=== PATIENT | female | born 1975 | race Caucasian/White ===

== ENCOUNTER 2024-09-11 12:02 | Emergency (ER) | payer SELFPAY ==
[2024-09-11 12:19] VITALS: BP 142/113; PULSE 78; RESP 16; TEMP 36.9; O2SAT 100
--- NOTE | 2024-09-11 12:25 | XRR_ITS ---
PROCEDURE INFORMATION: Exam: XR Right Knee Exam date and time: 09/11/2024 12:34 PM Age: 49 years old Clinical indication: Injury or trauma; Fall; Blunt trauma; Knee; Right TECHNIQUE: Imaging protocol: Radiologic exam of the right knee. Views: 3 views. COMPARISON: No relevant prior studies available. FINDINGS: Bones/joints: Normal. Soft tissues: Normal. XR/XR knee RT 3V* [id number] IMPRESSION: No acute findings.
--- NOTE | 2024-09-11 12:26 | W.ED.EXTPRO ---
HPI - Extremity Problem General: Chief complaint: Extremity Injury, Lower Stated complaint: right knee pain Time Seen by Provider: 09/11/24 12:21 Source: patient Mode of arrival: ambulatory Limitations: no limitations History of Present Illness: 49-year-old female states she had tripped and fell last night. States her right foot was planted and her knee gave out she had felt a pop and she has been having pain in the medial portion of her knee since then. States it is painful to bear weight she denies any ankle or hip pain denies hitting her head. Associated symptoms: Deny chest pain, fever(s) or rash Related Data Allergies Allergy/AdvReac Type Severity Reaction Status Date / Time No Known Allergies Allergy Verified 09/11/24 12:23 Review of Systems Const: Denies: fever(s), chills, body aches or change in appetite ENMT: Denies: throat pain or dental pain Card: Denies: chest pain Resp: Denies: dyspnea GI: Denies: abdominal pain, nausea, vomiting or diarrhea Musc: Reports: extremity pain; Denies: neck pain or back pain Skin/Breast: Denies: rash Neuro: Denies: headache(s) Physical Exam Const: COMMON NORMALS: no acute distress, patient oriented x3 and healthy appearing HENMT: COMMON NORMALS: normocephalic and atraumatic HEAD & SCALP: normocephalic and atraumatic Eye: COMMON NORMALS: conjunctivae normal CONJUNCTIVA: Yes conjunctivae normal Neck/C-Spine: COMMON NORMALS: full ROM and supple Chest: COMMONS NORMALS: normal inspection of the chest Resp: COMMON NORMALS: normal respiratory effort Cardio: COMMON NORMALS: regular rate, regular rhythm and No murmurs present (Cardio) RATE: regular rate RHYTHM: regular rhythm Extremity: NARRATIVE EXTREMITY EXAM: Tenderness noted to right medial knee no swelling no obvious deformity Neuro: COMMON NORMALS: patient oriented x3, moves all extremities and no focal motor deficits Psych: COMMON NORMALS: mental status grossly normal, Normal thought process present and cooperative THOUGHT PROCESS: Normal thought process present Skin: COMMON NORMALS: no rashes or lesions noted and no wounds GENERAL SKIN EXAM: no rashes or lesions noted Course Vital Signs: Vital signs: Vital Signs Temperature 98.4 F 09/11/24 12:19 Pulse Rate 71 09/11/24 12:45 Respiratory Rate 16 09/11/24 12:19 Blood Pressure 125/80 09/11/24 12:45 Pulse Oximetry 98 09/11/24 12:45 Oxygen Delivery Me thod Room Air 09/11/24 12:45 MDM - Extremity (Nontraumatic) Medical Decision Making Patient presents here with knee sprain possible medial ligament tear or meniscus injury no fractures are seen on the x-ray she is to be nonweightbearing I did refer her to orthopedics she is to follow-up with them return if worsening Medical Records I reviewed the patient's medical records. All radiology interpretation(s) finalized by discharge ED provider radiology interpretation(s): xr knee: no acute fx Discharge Plan Discharge Patient Disposition: Home Clinical Impression: Knee sprain Qualifiers: Encounter type: initial encounter Laterality: right Condition: Stable Discharge Orders: Discharge ED (Routine); Ordered 09/11/24 Ordered By: Alison Koch Discharge Diet: Advance as tolerated Discharge Activity: Resume usual activity Patient Instructions: Knee Sprain (ED) Print Language: [place]ian Coding Level of Care Code ED Block [employer] Operator for Haim Shelby
[2024-09-11 12:45] VITALS: BP 125/80; PULSE 71; O2SAT 98
[2024-09-11 13:17] VITALS: BP 123/71; PULSE 70; O2SAT 96
--- NOTE | 2024-09-13 07:35 | DCPLANNER ---
messaged ortho for er f/u
== END 2024-09-11 13:18 | disposition home or self-care (01) ==
PROVIDERS: Emergency Provider Emergency Medicine
DX: S83.91XA Sprain of unspecified site of right knee, initial encounter (principal); X58.XXXA Exposure to other specified factors, initial encounter
CPT/HCPCS: 29530; 73562; 99283